=== PATIENT | female | born 1995 | race Caucasian/White ===

== ENCOUNTER 2017-11-09 14:00 | Emergency (ER) | payer OTHER ==
[2017-11-09] MEDS ORDERED: ONDANSETRON 4 MG/2 ML VIAL IVP STA (14:35)
[2017-11-09] MEDS ORDERED: SODIUM CHLORIDE 0.9% 500 ML IV STA (14:35)
[2017-11-09] MEDS ORDERED: FAMOTIDINE 20 MG/2 ML VIAL IV STA (14:36)
--- NOTE | 2017-11-09 15:08 | ED ---
Nausea/Vomiting/Diarrhea HPI - General Chief complaint: Nausea/Vomiting/Diarrhea Stated complaint: N & V poss Time Seen by Provider: 11/09/17 14:11 Source: patient, RN notes reviewed Mode of arrival: ambulatory Limitations: no limitations - History of Present Illness Initial comments: 22-year-old female presents emergency Department chief complaint of upper abdominal discomfort, periumbilical pain. Patient states that started last day or 2 and states that it comes and goes. Patient states he feels like cramping. Patient states that she's had nausea no vomiting no diarrhea no constipation. She has no dysuria no hematuria last mental cycle was 2 weeks ago. Patient states she is unsure if she is or not. Patient denies any fever, chills, night sweats. - Related Data Home Medications Medication Instructions Recorded Confirmed FLUoxetine HCL [PROzac] 10 mg PO DAILY 11/09/17 11/09/17 Previous Rx's Medication Instructions Recorded Omeprazole 40 mg PO DAILY #14 capsule. 11/09/17 Ondansetron Odt [Zofran Odt] 4 mg PO Q8HR PRN #10 tab 11/09/17 Allergies Allergy/AdvReac Type Severity Reaction Status Date / Time No Known Allergies Allergy Verified 11/09/17 14:30 Review of Systems ROS Statement: Those systems with pertinent positive or pertinent negative responses have been documented in the HPI. ROS Other: All systems not noted in ROS Statement are negative. Past Medical History Past Medical History: No Reported History History of Any Multi-Drug Resistant Organisms: None Reported Past Surgical History: Adenoidectomy, Tonsillectomy Additional Past Surgical History / Comment(s): ovarian cysts Past Psychological History: Anxiety, Depression Smoking Status: Current every day smoker Past Alcohol Use History: None Reported Past Drug Use History: None Reported General Exam Limitations: no limitations General appearance: alert, in no apparent distress Head exam: Present: atraumatic, normocephalic, normal inspection Neck exam: Present: normal inspection, full ROM. Absent: tenderness, meningismus, lymphadenopathy Respiratory exam: Present: normal lung sounds bilaterally. Absent: respiratory distress, wheezes, rales, rhonchi, stridor Cardiovascular Exam: Present: regular rate, normal rhythm, normal heart sounds. Absent: systolic murmur, diastolic murmur, rubs, gallop, clicks GI/Abdominal exam: Present: soft, tenderness (Mild epigastric), normal bowel sounds. Absent: distended, guarding, rebound, rigid Back exam: Absent: CVA tenderness (R), CVA tenderness (L) Skin exam: Present: warm, dry, intact, normal color. Absent: rash Course Vital Signs 11/09/17 14:02 Temperature 98.2 F Pulse Rate 96 Respiratory 16 Rate Blood Pressure 106/69 O2 Sat by Pulse 98 Oximetry Medical Decision Making - Medical Decision Making 22-year-old female presents emergency from for nausea, epigastric discomfort. Patient consents test was negative. Patient does have GERD type symptoms. Patient's lab work is unremarkable. Patient we discharged with omeprazole and Zofran return parameters discussed. - Lab Data Result diagrams: 11/09/17 15:02 11/09/17 15:02 Lab Results 11/09/17 11/09/17 11/09/17 Range/Units 15:02 15:02 15:02 WBC 8.0 (4.0-11.0) k/uL RBC 4.70 (3.80-5.40) m/uL Hgb 13.9 (11.4-16.0) gm/dL Hct 43.0 (34.0-46.0) % MCV 91.5 (80.0-100.0) fL MCH 29.7 (25.0-35.0) pg MCHC 32.4 (31.0-37.0) g/dL RDW 12.6 (11.5-15.5) % Plt Count 195 (150-450) k/uL Neutrophils % 58 % Lymphocytes % 28 % Monocytes % 6 % Eosinophils % 5 % Basophils % 1 % Neutrophils # 4.7 (1.3-7.7) k/uL Lymphocytes # 2.2 (1.0-4.8) k/uL Monocytes # 0.5 (0-1.0) k/uL Eosinophils # 0.4 (0-0.7) k/uL Basophils # 0.1 (0-0.2) k/uL Sodium 141 (137-145) mmol/L Potassium 4.5 (3.5-5.1) mmol/L Chloride 106 (98-107) mmol/L Carbon Dioxide 26 (22-30) mmol/L Anion Gap 9 mmol/L BUN 7 (7-17) mg/dL Creatinine 0.58 (0.52-1.04) mg/dL Est GFR (CKD-EPI)AfAm >90 (>60 ml/min/1.73 sqM) Est GFR (CKD-EPI)NonAf >90 (>60 ml/min/1.73 sqM) Glucose 85 (74-99) mg/dL Calcium 9.7 (8.4-10.2) mg/dL Total Bilirubin 0.6 (0.2-1.3) mg/dL AST 23 (14-36) U/L ALT 28 (9-52) U/L Alkaline Phosphatase 94 (38-126) U/L Total Protein 7.0 (6.3-8.2) g/dL Albumin 4.2 (3.5-5.0) g/dL Amylase 60 (30-110) U/L Lipase 64 (23-300) U/L Urine Color Light Yellow Urine Appearance Clear (Clear) Urine pH 7.5 (5.0-8.0) Ur Specific [place] 1.008 (1.001-1.035) Urine Protein Negative (Negative) Urine Glucose (UA) Negative (Negative) Urine Ketones Negative (Negative) Urine Blood Negative (Negative) Urine Nitrite Negative (Negative) Urine Bilirubin Negative (Negative) Urine Urobilinogen <2.0 (<2.0) mg/dL Ur Leukocyte Esterase Negative (Negative) Urine HCG, Qual (Not Detectd) 11/09/17 Range/Units 15:02 WBC (4.0-11.0) k/uL RBC (3.80-5.40) m/uL Hgb (11.4-16.0) gm/dL Hct (34.0-46.0) % MCV (80.0-100.0) fL MCH (25.0-35.0) pg MCHC (31.0-37.0) g/dL RDW (11.5-15.5) % Plt Count (150-450) k/uL Neutrophils % % Lymphocytes % % Monocytes % % Eosinophils % % Basophils % % Neutrophils # (1.3-7.7) k/uL Lymphocytes # (1.0-4.8) k/uL Monocytes # (0-1.0) k/uL Eosinophils # (0-0.7) k/uL Basophils # (0-0.2) k/uL Sodium (137-145) mmol/L Potassium (3.5-5.1) mmol/L Chloride (98-107) mmol/L Carbon Dioxide (22-30) mmol/L Anion Gap mmol/L BUN (7-17) mg/dL Creatinine (0.52-1.04) mg/dL Est GFR (CKD-EPI)AfAm (>60 ml/min/1.73 sqM) Est GFR (CKD-EPI)NonAf (>60 ml/min/1.73 sqM) Glucose (74-99) mg/dL Calcium (8.4-10.2) mg/dL Total Bilirubin (0.2-1.3) mg/dL AST (14-36) U/L ALT (9-52) U/L Alkaline Phosphatase (38-126) U/L Total Protein (6.3-8.2) g/dL Albumin (3.5-5.0) g/dL Amylase (30-110) U/L Lipase (23-300) U/L Urine Color Urine Appearance (Clear) Urine pH (5.0-8.0) Ur Specific [place] (1.001-1.035) Urine Protein (Negative) Urine Glucose (UA) (Negative) Urine Ketones (Negative) Urine Blood (Negative) Urine Nitrite (Negative) Urine Bilirubin (Negative) Urine Urobilinogen (<2.0) mg/dL Ur Leukocyte Esterase (Negative) Urine HCG, Qual Not Detected (Not Detectd) Disposition Clinical Impression: GERD (gastroesophageal reflux disease), Nausea Disposition: HOME SELF-CARE Condition: Stable Instructions: Gastroesophageal Reflux Disease (ED) Additional Instructions: Please return to the Emergency Department if symptoms worsen or any other concerns. Prescriptions: Omeprazole 40 mg PO DAILY #14 capsule. Ondansetron Odt [Zofran Odt] 4 mg PO Q8HR PRN #10 tab PRN Reason: Nausea Is patient prescribed a controlled substance at d/c from ED?: No Referrals: Archie Terry DO [Primary Care Provider] - 1-2 days Time of Disposition: 16:20
[2017-11-09 15:15] LABS: Basophils # (A) 0.1 k/uL (0-0.2); Basophils % (A) 1 %; Eosinophils # (A) 0.4 k/uL (0-0.7); Eosinophils % (A) 5 %; HGB 13.9 gm/dL (11.4-16.0); Lymphocytes # (A) 2.2 k/uL (1.0-4.8); Lymphocytes % (A) 28 %; MCH 29.7 pg (25.0-35.0); MCHC 32.4 g/dL (31.0-37.0); MCV 91.5 fL (80.0-100.0); Monocytes # (A) 0.5 k/uL (0-1.0); Monocytes % (A) 6 %; Neutrophils # (A) 4.7 k/uL (1.3-7.7); Neutrophils % (A) 58 %; Platelet Count 195 k/uL (150-450); RDW 12.6 % (11.5-15.5)
[2017-11-09 15:28] LABS: ALT 28 U/L (9-52); AST 23 U/L (14-36); Albumin 4.2 g/dL (3.5-5.0); Alkaline Phosphatase 94 U/L (38-126); Amylase 60 U/L (30-110); Anion Gap 9 mmol/L; Blood Urea Nitrogen 7 mg/dL (7-17); Calcium 9.7 mg/dL (8.4-10.2); Carbon Dioxide 26 mmol/L (22-30); Chloride 106 mmol/L (98-107); Glucose 85 mg/dL (74-99); Lipase 64 U/L (23-300); Potassium 4.5 mmol/L (3.5-5.1); Sodium 141 mmol/L (137-145); Total Bilirubin 0.6 mg/dL (0.2-1.3)
[2017-11-09 15:29] LABS: Appearance,Urine Clear (Clear); Bilirubin,Urine Negative (Negative); Blood,Urine Negative (Negative); Color,Urine Light Yellow; Glucose,Urine (UA) Negative (Negative); Ketones,Urine Negative (Negative); Leukocyte Esterase,Urine Negative (Negative); Nitrite,Urine Negative (Negative); PH, Urine 7.5 (5.0-8.0); Protein,Urine Negative (Negative); Specific Gravity,Urine 1.008 (1.001-1.035); Urobilinogen,Urine <2.0 mg/dL (<2.0)
[2017-11-09 16:23] VITALS: RESP 18
[2017-11-09 16:33] VITALS: BP 97/55; PULSE 70; TEMP 98.9
== END 2017-11-09 16:32 | disposition home or self-care (01) ==
LOC: EC 14:00
DX: K21.9 Gastro-esophageal reflux disease without esophagitis (principal); R11.0 Nausea; F41.9 Anxiety disorder, unspecified; F32.9 Major depressive disorder, single episode, unspecified; F17.200 Nicotine dependence, unspecified, uncomplicated; Z32.02 Encounter for pregnancy test, result negative; Z79.899 Other long term (current) drug therapy
CPT/HCPCS: 36415; 80053; 82150; 83690; 85025; 81003; 81025; 99284; 96374; 96375; 96361; J2405

== ENCOUNTER 2017-11-22 20:40 | Emergency (ER) | payer OTHER ==
[2017-11-22 20:46] VITALS: RESP 16
--- NOTE | 2017-11-22 21:23 | ED ---
Abdominal Pain HPI - General Source: patient, RN notes reviewed Mode of arrival: ambulatory Limitations: no limitations <Sarah Ayoub - Last Filed: 11/22/17 22:43> <Maame Herrmann - Last Filed: 11/23/17 01:23> - General Chief Complaint: Abdominal Pain Stated Complaint: early /cramping Time Seen by Provider: 11/22/17 21:09 - History of Present Illness Initial Comments: This is a 22-year-old female who presents to the emergency department with chief complaint of abdominal cramping. Patient states that her last menstrual period started on October 26. She states that a couple of weeks ago she had a positive test. She states that 2 nights ago she developed lower abdominal cramping. Denies any vaginal bleeding or discharge. Denies any previous pregnancies. Reports nausea but denies vomiting or diarrhea. Denies fevers or chills, chest pain shortness of breath. (Sarah Ayoub) - Related Data Home Medications Medication Instructions Recorded Confirmed FLUoxetine HCL [PROzac] 10 mg PO DAILY 11/09/17 11/22/17 Allergies Allergy/AdvReac Type Severity Reaction Status Date / Time No Known Allergies Allergy Verified 11/22/17 20:49 Review of Systems ROS Other: All systems not noted in ROS Statement are negative. <Sarah Ayoub - Last Filed: 11/22/17 22:43> ROS Other: All systems not noted in ROS Statement are negative. <Maame Herrmann - Last Filed: 11/23/17 01:23> ROS Statement: Those systems with pertinent positive or pertinent negative responses have been documented in the HPI. Past Medical History Past Medical History: No Reported History History of Any Multi-Drug Resistant Organisms: None Reported Past Surgical History: Adenoidectomy, Appendectomy, Tonsillectomy Additional Past Surgical History / Comment(s): ovarian cysts Past Psychological History: Anxiety, Depression Smoking Status: Current every day smoker Past Alcohol Use History: None Reported Past Drug Use History: None Reported <Sarah Ayoub - Last Filed: 11/22/17 22:43> General Exam Limitations: no limitations <Sarah Ayoub - Last Filed: 11/22/17 22:43> <Maame Herrmann - Last Filed: 11/23/17 01:23> - General Exam Comments Initial Comments: General: Awake and alert, well-developed; in no apparent distress. Sitting upright on ED stretcher playing on her cell phone. HEENT: Head atraumatic, normocephalic. Pupils are equal, round and reactive to light. Extraocular movements intact. Oropharynx moist without erythema or exudate. Neck: Supple. Normal ROM. Cardiovascular: Regular rate and rhythm. No murmurs, rubs or gallops. Chest symmetrical. Respiratory: Lungs clear to auscultation bilaterally. No wheezes, rales or rhonchi. Normal respiratory effort with no use of accessory muscles. Abdomen: Soft, non-distended. Mild tenderness on palpation of suprapubic and left lower quadrant. No rigidity, rebound or guarding. Normal bowel sounds in all 4 quadrants. Musculoskeletal: Normal ROM, no tenderness bilateral upper and lower extremities. Ambulating normally. Skin: [place], warm and dry without rashes or lesions. Neurological: Alert and oriented x3. CN II-XII grossly intact. Speech is fluent and answers are appropriate. No focal neuro deficits. Psychiatric: Normal mood and affect. No overt signs of depression or anxiety noted. (Sarah Ayoub) Vital Signs 11/22/17 11/22/17 20:44 23:02 Temperature 98.3 F 98.4 F Pulse Rate 101 H 87 Respiratory 16 16 Rate Blood Pressure 103/62 109/68 O2 Sat by Pulse 98 97 Oximetry Medical Decision Making <Sarah Ayoub - Last Filed: 11/22/17 22:43> <Maame Herrmann - Last Filed: 11/23/17 01:23> - Medical Decision Making This is a 22-year-old female who presents to the emergency department with chief complaint of lower abdominal cramping. Patient reports a positive test a couple of weeks ago. She states her last menstrual period was October 26. There is mild tenderness on palpation of the abdomen, however patient is in no acute distress. She is alert, active and playing on her cell phone. Vital signs are stable. Urine hCG is positive. UA is unremarkable. She is at low risk for an ectopic . This is her first , has no history of STDs, does not use an IUD and has not had any fertility treatments. Recommended pelvic exam, however patient declines at this time. She will be provided with contact information to follow up with [facility]. She is in agreement and voices understanding. She will be discharged home at this time. All questions answered. (Sarah Ayoub) I was available for consultation in the emergency department. The history and physical exam were done by the midlevel provider. I was consulted for this patient's care. I reviewed the case with the midlevel provider and based on their presentation of the patient, I agree with the assessment, medical decision making and plan of care as documented. (aMame Herrmann) - Lab Data Lab Results 11/22/17 11/22/17 Range/Units 21:30 21:30 Urine Color Yellow Urine Appearance Cloudy H (Clear) Urine pH 6.0 (5.0-8.0) Ur Specific [place] 1.017 (1.001-1.035) Urine Protein Negative (Negative) Urine Glucose (UA) Negative (Negative) Urine Ketones 1+ H (Negative) Urine Blood Small H (Negative) Urine Nitrite Negative (Negative) Urine Bilirubin Negative (Negative) Urine Urobilinogen <2.0 (<2.0) mg/dL Ur Leukocyte Esterase Trace H (Negative) Urine RBC 3 (0-5) /hpf Urine WBC 2 (0-5) /hpf Ur Squamous Epith Cells 5 H (0-4) /hpf Urine Bacteria Rare H (None) /hpf Urine Mucus Rare H (None) /hpf Urine HCG, Qual Detected (Not Detectd) Disposition Is patient prescribed a controlled substance at d/c from ED?: No Time of Disposition: 22:55 <Sarah Ayoub - Last Filed: 11/22/17 22:43> <Maame Herrmann - Last Filed: 11/23/17 01:23> Clinical Impression: Disposition: HOME SELF-CARE Condition: Good Instructions: (ED), Abdominal Pain in (ED) Additional Instructions: Please establish care with [facility]. Please follow up with primary care provider within 1-2 days. Return to emergency department if symptoms should worsen or any concerns arise. Referrals: Archie Terry DO [Primary Care Provider] - 1-2 days Surjit Deng MD [STAFF PHYSICIAN] - 1-2 days
[2017-11-22 21:51] LABS: Bacteria,Urine Rare /hpf
[2017-11-22 22:32] LABS: Appearance,Urine Cloudy (Clear); Bilirubin,Urine Negative (Negative); Blood,Urine Small (Negative); Color,Urine Yellow; Glucose,Urine (UA) Negative (Negative); Ketones,Urine 1+ (Negative); Leukocyte Esterase,Urine Trace (Negative); Mucus,Urine Rare /hpf; Nitrite,Urine Negative (Negative); Protein,Urine Negative (Negative); RBC,Urine 3 /hpf (0-5); Specific Gravity,Urine 1.017 (1.001-1.035); Squamous Epithelial Cell,Urine 5 /hpf (0-4); Urobilinogen,Urine <2.0 mg/dL (<2.0); WBC,Urine 2 /hpf (0-5)
[2017-11-22 23:03] VITALS: BP 109/68; PULSE 87; TEMP 98.4
== END 2017-11-22 23:05 | disposition home or self-care (01) ==
LOC: EC 20:40
DX: O26.891 Other specified pregnancy related conditions, first trimester (principal); R10.30 Lower abdominal pain, unspecified; R11.0 Nausea; O99.341 Other mental disorders complicating pregnancy, first trimester; F32.9 Major depressive disorder, single episode, unspecified; F41.9 Anxiety disorder, unspecified; O99.331 Smoking (tobacco) complicating pregnancy, first trimester; F17.200 Nicotine dependence, unspecified, uncomplicated; Z3A.01 Less than 8 weeks gestation of pregnancy; Z79.899 Other long term (current) drug therapy
CPT/HCPCS: 81001; 81025; 99284

== ENCOUNTER 2017-12-08 18:41 | Emergency (ER) | payer OTHER ==
--- NOTE | 2017-12-08 19:24 | ED ---
General Adult HPI - General Source: patient, RN notes reviewed Mode of arrival: ambulatory Limitations: no limitations <Harvinder Shankar - Last Filed: 12/08/17 22:02> <Maame Herrmann P - Last Filed: 12/09/17 00:29> - General Chief complaint: Abdominal Pain Stated complaint: 6wks preg, cramping Time Seen by Provider: 12/08/17 19:07 - History of Present Illness Initial comments: Patient is a 22-year-old female who is G1, P0 approximately 6 weeks by last month cycle, presenting for lower abdominal cramping. Patient states her last today she's had increased cramping. She does admit that she was advised when she was seen here last 2 weeks ago that she should return cramping got worse. She states worse the last 2 days. She states that she has not had any vaginal bleeding or discharge. She denies any other complaints or symptoms. Patient denies any recent fever, chills, shortness of breath, chest pain, back pain, nausea or vomiting, numbness or tingling, dysuria or hematuria, constipation or diarrhea, headaches or visual changes, or any other complaints. (Harvinder Shankar) - Related Data Home Medications Medication Instructions Recorded Confirmed FLUoxetine HCL [PROzac] 10 mg PO DAILY 11/09/17 11/22/17 Allergies Allergy/AdvReac Type Severity Reaction Status Date / Time No Known Allergies Allergy Verified 12/08/17 19:00 Review of Systems ROS Other: All systems not noted in ROS Statement are negative. <Harvinder Shankar - Last Filed: 12/08/17 22:02> ROS Other: All systems not noted in ROS Statement are negative. <Maame Herrmann P - Last Filed: 12/09/17 00:29> ROS Statement: Those systems with pertinent positive or pertinent negative responses have been documented in the HPI. Past Medical History Past Medical History: No Reported History History of Any Multi-Drug Resistant Organisms: None Reported Past Surgical History: Adenoidectomy, Appendectomy, Tonsillectomy Additional Past Surgical History / Comment(s): ovarian cysts Past Psychological History: Anxiety, Depression Smoking Status: Current every day smoker Past Alcohol Use History: None Reported Past Drug Use History: None Reported <Harvinder Shankar - Last Filed: 12/08/17 22:02> General Exam Limitations: no limitations <Harvinder Shankar - Last Filed: 12/08/17 22:02> <Maame Herrmann - Last Filed: 12/09/17 00:29> - General Exam Comments Initial Comments: General: The patient is awake and alert, in no distress, and does not appear acutely ill. Eye: Pupils are equal, round and reactive to light. Extra-ocular movements are intact. No nystagmus. There is normal conjunctiva bilaterally. No signs of icterus. Ears, nose, mouth and throat: There are moist mucous membranes and no oral lesions. Neck: The neck is supple, there is no tenderness or JVD. Cardiovascular: There is a regular rate and rhythm. No murmur, rub or gallop is appreciated. Respiratory: Lungs are clear to auscultation, respirations are non-labored, breath sounds are equal. No wheezes, stridor, rales, or rhonchi. Gastrointestinal: Abdomen soft on palpation. Patient does have tenderness both right and left lower quadrants minimal on exam. No rebound, guarding or CVA tenderness. Musculoskeletal: Normal ROM, no tenderness. Sensation intact. Strength 5/5. Pulses equal bilaterally 2+. Neurological: A&O x 3. CN II-XII intact, There are no obvious motor or sensory deficits. Coordination appears grossly intact. Speech is normal. Skin: Skin is warm and dry and no rashes or lesions are noted. Psychiatric: Cooperative, appropriate mood & affect, normal judgment. (Harvinder Shankar) Vital Signs 12/08/17 12/08/17 18:56 22:16 Temperature 98.2 F 98 F Pulse Rate 96 78 Respiratory 18 16 Rate Blood Pressure 104/69 110/72 O2 Sat by Pulse 100 100 Oximetry Medical Decision Making - Lab Data Result diagrams: 12/08/17 20:00 12/08/17 20:00 <Harvinder Shankar - Last Filed: 12/08/17 22:02> - Lab Data Result diagrams: 12/08/17 20:00 12/08/17 20:00 <Maame Herrmann - Last Filed: 12/09/17 00:29> - Medical Decision Making Patient reexamined at this time shows no signs of distress is resting comfortable. Abdomen soft on palpation. Has no vaginal bleeding or discharge. Patient's ultrasound shows IUP 5 weeks 6 days. Right-sided ovarian cyst. Patient's blood work and urinalysis reviewed unremarkable. I did send patient be discharged home to follow-up with [facility] over the next 2 days return if any symptoms increase or worsen. (Harvinder Shankar) I was available for consultation in the emergency department. The history and physical exam were done by the midlevel provider. I was consulted for this patient's care. I reviewed the case with the midlevel provider and based on their presentation of the patient, I agree with the assessment, medical decision making and plan of care as documented. (Maame Herrmann) - Lab Data Lab Results 12/08/17 12/08/17 12/08/17 Range/Units 20:00 20:00 20:00 WBC 10.5 (4.0-11.0) k/uL RBC 4.47 (3.80-5.40) m/uL Hgb 13.4 (11.4-16.0) gm/dL Hct 40.4 (34.0-46.0) % MCV 90.3 (80.0-100.0) fL MCH 29.9 (25.0-35.0) pg MCHC 33.1 (31.0-37.0) g/dL RDW 12.6 (11.5-15.5) % Plt Count 247 (150-450) k/uL Neutrophils % 61 % Lymphocytes % 29 % Monocytes % 5 % Eosinophils % 4 % Basophils % 0 % Neutrophils # 6.4 (1.3-7.7) k/uL Lymphocytes # 3.0 (1.0-4.8) k/uL Monocytes # 0.5 (0-1.0) k/uL Eosinophils # 0.4 (0-0.7) k/uL Basophils # 0.1 (0-0.2) k/uL Sodium 138 (137-145) mmol/L Potassium 4.5 (3.5-5.1) mmol/L Chloride 108 H (98-107) mmol/L Carbon Dioxide 24 (22-30) mmol/L Anion Gap 6 mmol/L BUN 7 (7-17) mg/dL Creatinine 0.59 (0.52-1.04) mg/dL Est GFR (CKD-EPI)AfAm >90 (>60 ml/min/1.73 sqM) Est GFR (CKD-EPI)NonAf >90 (>60 ml/min/1.73 sqM) Glucose 84 (74-99) mg/dL Calcium 9.8 (8.4-10.2) mg/dL Total Bilirubin 0.4 (0.2-1.3) mg/dL AST 20 (14-36) U/L ALT 29 (9-52) U/L Alkaline Phosphatase 89 (38-126) U/L Total Protein 6.8 (6.3-8.2) g/dL Albumin 3.9 (3.5-5.0) g/dL HCG, Quant 68994.9 mIU/mL Urine Color Light Yellow Urine Appearance Cloudy H (Clear) Urine pH 5.5 (5.0-8.0) Ur Specific [place] 1.013 (1.001-1.035) Urine Protein Negative (Negative) Urine Glucose (UA) Negative (Negative) Urine Ketones Negative (Negative) Urine Blood Negative (Negative) Urine Nitrite Negative (Negative) Urine Bilirubin Negative (Negative) Urine Urobilinogen <2.0 (<2.0) mg/dL Ur Leukocyte Esterase Small H (Negative) Urine RBC 2 (0-5) /hpf Urine WBC 1 (0-5) /hpf Ur Squamous Epith Cells 15 H (0-4) /hpf Amorphous Sediment Rare H (None) /hpf Urine Bacteria Occasional H (None) /hpf Urine Mucus Rare H (None) /hpf Disposition Is patient prescribed a controlled substance at d/c from ED?: No Time of Disposition: 22:02 <Harvinder Shankar - Last Filed: 12/08/17 22:02> <Maame Herrmann - Last Filed: 12/09/17 00:29> Clinical Impression: Abdominal pain in Disposition: HOME SELF-CARE Condition: Good Instructions: Abdominal Pain in (ED) Additional Instructions: Please use medication as discussed. Please follow-up with [facility]/family doctor in the next 2 days of symptoms have not improved. Please return to emergency room if the symptoms increase or worsen or for any other concerns. Referrals: Archie Terry DO [Primary Care Provider] - 1-2 days
[2017-12-08 20:14] LABS: Basophils # (A) 0.1 k/uL (0-0.2); Basophils % (A) 0 %; Eosinophils # (A) 0.4 k/uL (0-0.7); Eosinophils % (A) 4 %; HCT 40.4 % (34.0-46.0); HGB 13.4 gm/dL (11.4-16.0); Lymphocytes % (A) 29 %; MCH 29.9 pg (25.0-35.0); MCHC 33.1 g/dL (31.0-37.0); MCV 90.3 fL (80.0-100.0); Mean Platelet Volume 7.4; Monocytes # (A) 0.5 k/uL (0-1.0); Monocytes % (A) 5 %; Neutrophils # (A) 6.4 k/uL (1.3-7.7); Neutrophils % (A) 61 %; Platelet Count 247 k/uL (150-450); RBC 4.47 m/uL (3.80-5.40); RDW 12.6 % (11.5-15.5); WBC 10.5 k/uL (4.0-11.0)
[2017-12-08 20:18] LABS: Amorphous Sediment,Urine Rare /hpf; Appearance,Urine Cloudy (Clear); Bacteria,Urine Occasional /hpf; Bilirubin,Urine Negative (Negative); Blood,Urine Negative (Negative); Color,Urine Light Yellow; Glucose,Urine (UA) Negative (Negative); Ketones,Urine Negative (Negative); Leukocyte Esterase,Urine Small (Negative); Mucus,Urine Rare /hpf; Nitrite,Urine Negative (Negative); PH, Urine 5.5 (5.0-8.0); Protein,Urine Negative (Negative); RBC,Urine 2 /hpf (0-5); Specific Gravity,Urine 1.013 (1.001-1.035); Squamous Epithelial Cell,Urine 15 /hpf (0-4); Urobilinogen,Urine <2.0 mg/dL (<2.0); WBC,Urine 1 /hpf (0-5)
[2017-12-08 20:26] LABS: ALT 29 U/L (9-52); AST 20 U/L (14-36); Albumin 3.9 g/dL (3.5-5.0); Alkaline Phosphatase 89 U/L (38-126); Anion Gap 6 mmol/L; Blood Urea Nitrogen 7 mg/dL (7-17); Calcium 9.8 mg/dL (8.4-10.2); Carbon Dioxide 24 mmol/L (22-30); Chloride 108 mmol/L (98-107); Glucose 84 mg/dL (74-99); Potassium 4.5 mmol/L (3.5-5.1); Sodium 138 mmol/L (137-145); Total Bilirubin 0.4 mg/dL (0.2-1.3); Total Protein 6.8 g/dL (6.3-8.2)
[2017-12-08 20:43] LABS: HCG,Quantitative Serum 13522.9 mIU/mL
--- NOTE | 2017-12-08 21:47 | US ---
EXAMINATION TYPE: Transabdominal DATE OF EXAM: 05/29/17 COMPARISON: NONE CLINICAL HISTORY: Pain. Positive beta-hCG test. EXAM PERFORMED: EXAM MEASUREMENTS: GESTATIONAL AGE / DATING Physician Established: Not yet established Dates by LMP: (6 weeks/1 days) EDC: 08/02/2018 Dates by First Scan: No previous this is first scan Dates by Current Scan for: (5 weeks/6 days) EDC: 08/04/2018 MATERNAL ANATOMY Uterus: 8.5 x 4.1 x 5.1cm; Anteverted Right Ovary: 2.9 x 2.0 x 2.3 cm; ?corpus luteum measuring 2.1 x 1.8 x 1.9 cm Left Ovary: 3.0 x 1.6 x 2.1 cm; wnl Post CDS / Adnexa: wnl Presence of free fluid: no Presence of corpus luteal cyst: Yes, right ovary measuring 2.1 x 1.8 x 1.9 cm Presence of subchorionic bleed: no GESTATION / SURVEY CRL: 0.3 cm (5 weeks/6 days) Yolk Sac (normal less than 6mm): 2 mm Heart Rate: 119 bpm Rhythm: Normal IUP: Viable IUP Date of LMP: 10/26/2017 Beta HcG (if available): Not available at this time Single live intrauterine gestation is confirmed as gestational sac, yolk sac, and pole are pres ent. No free fluid is seen in pelvic cul-de-sac. Both ovaries are seen, within right ovary there is 2.1 cm hypervascular hyperechoic lesion felt to re flect corpus luteal cyst. No suspicious extra ovarian adnexal lesions are seen. IMPRESSION: Single live intrauterine gestation is confirmed, mean crown-rump length is 0.3 cm corresp onding to 5 weeks 6 day old fetus.
[2017-12-08 22:17] VITALS: BP 110/72; PULSE 78; RESP 16; TEMP 98
== END 2017-12-08 22:17 | disposition home or self-care (01) ==
LOC: EC 18:41
DX: O99.89 Other specified diseases and conditions complicating pregnancy, childbirth and the puerperium (principal); R10.30 Lower abdominal pain, unspecified; N83.201 Unspecified ovarian cyst, right side; O99.341 Other mental disorders complicating pregnancy, first trimester; F32.9 Major depressive disorder, single episode, unspecified; F41.9 Anxiety disorder, unspecified; O99.331 Smoking (tobacco) complicating pregnancy, first trimester; F17.200 Nicotine dependence, unspecified, uncomplicated; Z79.899 Other long term (current) drug therapy; Z90.49 Acquired absence of other specified parts of digestive tract; Z3A.01 Less than 8 weeks gestation of pregnancy
CPT/HCPCS: 36415; 76801; 76817; 80053; 81001; 84702; 85025; 87086; 99284